=== PATIENT | male | born 1995 | race Caucasian/White ===

== ENCOUNTER 2018-09-13 14:19 | Emergency (ER) | payer BC ==
[2018-09-13 14:35] VITALS: BP 131/61
[2018-09-13] MEDS ORDERED: Ketorolac INJ* 30 MG/ML 1 ML VIAL IM ONE (14:52)
[2018-09-13] MEDS ORDERED: Ketorolac INJ* 30 MG/ML 1 ML VIAL ONE (14:53)
--- NOTE | 2018-09-13 14:55 | UC ---
Hand/Wrist HPI - HPI Summary HPI Summary: Patient is a 23-year-old right-handed male that injured his left thumb about 2: 00 this afternoon playing soccer. He stated he landed in such a way the thumb was forcefully hyperflexed. He is feeling sick to his stomach due to the pain. Denies any other serious injury during this fall - History Of Current Complaint Chief Complaint: UCUpperExtremity Stated Complaint: THUMB INJURY Time Seen by Provider: 09/13/18 14:49 Hx Obtained From: Patient Onset/Duration: Sudden Onset Severity Initially: Severe Severity Currently: Severe Pain Intensity: 8 Pain Scale Used: 0-10 Numeric Character Of Pain: Sharp Aggravating Factor(s): Movement Alleviating Factor(s): Nothing Related History: Dominant Hand Right - Allergies/Home Medications Allergies/Adverse Reactions: Allergies Allergy/AdvReac Type Severity Reaction Status Date / Time No Known Allergies Allergy Verified 09/13/18 14:36 PMH/Surg Hx/FS Hx/Imm Hx Previously Healthy: Yes - Surgical History Surgical History: None - Family History Known Family History: Positive: Hypertension - Social History Alcohol Use: Weekly Substance Use Type: None Smoking Status (MU): Never Smoked Tobacco Review of Systems All Other Systems Reviewed And Are Negative: Yes Musculoskeletal: Positive: Arthralgia Physical Exam Triage Information Reviewed: Yes Appearance: Well-Appearing, No Pain Distress, Well-Nourished Vital Signs: Initial Vital Signs Temp 99.7 F 09/13/18 14:29 Pulse 122 09/13/18 14:29 Resp 16 09/13/18 14:29 BP 131/61 09/13/18 14:29 Pulse Ox 100 09/13/18 14:29 Vital Signs Reviewed: Yes Eyes: Positive: Conjunctiva Clear ENT: Positive: Hearing grossly normal. Negative: Nasal congestion, Nasal drainage, Muffled voice, Hoarse voice Neck: Positive: Supple, Nontender Respiratory: Positive: Lungs clear, Normal breath sounds, No respiratory distress Cardiovascular: Positive: RRR, No Murmur Procedures - Procedure Summary Procedure Summary: thumb spica splint applied by ak - Splinting Left Thumb Hand-Made Type: orthoglass Splint: thumb spica Pre-Proc Neuro Vasc Exam: normal Post-Proc Neuro Vasc Exam: normal Diagnostics - Radiology No standard instances Radiology Interpretation Completed By: Radiologist Summary of Radiographic Findings: Comminuted diaphyseal fracture of the first phalanx with intra-articular extension to the. first metacarpophalangeal joint Hand/Wrist Course/Dx - Course Course Of Treatment: pt and mother informed that I suspect that inaddition to the fracture I suspected serious ligamentous injury. they are aware of need to see specialist. - Differential Dx/Diagnosis Provider Diagnosis: Fracture of thumb, proximal phalanx, left, closed - Physician Notifications Discussed Patient Care With: Naomie Adam - she will see Andres Saturday, surgery anticipated Discharge - Sign-Out/Discharge Documenting (check all that apply): Patient Departure All imaging exams completed and their final reports reviewed: Yes - Discharge Plan Condition: Stable Disposition: HOME Prescriptions: Ibuprofen TAB* [Motrin TAB*] 600 mg PO QID #40 tab Patient Education Materials: Thumb Fracture (ED) Referrals: Naomie Adam MD [Medical Doctor] - 2 Days Additional Instructions: splint elevate ice See Dr. Adam SATURDAY - Billing Disposition and Condition Condition: STABLE Disposition: Home
== END 2018-09-13 16:00 | disposition home or self-care (01) ==
LOC: UCEAST 14:19
DX: S62.512A Displaced fracture of proximal phalanx of left thumb, initial encounter for closed fracture (principal); W18.30XA Fall on same level, unspecified, initial encounter; Y93.66 Activity, soccer; Y92.39 Other specified sports and athletic area as the place of occurrence of the external cause
CPT/HCPCS: 99212; G0463; J1885

== ENCOUNTER 2018-09-16 06:21 | Day surgery (SDC) | payer BC ==
[2018-09-16] MEDS ORDERED: ceFAZolin 2 GM PREMIX in ORs 2 GM/50 ML BAG IVPB ONE (06:32)
[2018-09-16] MEDS ORDERED: Lidocaine 1% INJ* 10 MG/ML 30 ML SDV ONE (07:17)
[2018-09-16] MEDS ORDERED: Bupivacaine 0.5% PF 10 ML VIAL INJ ONE (07:17)
[2018-09-16] MEDS ORDERED: Midazolam* 1 MG/ML 5 ML VIAL (5 MG) ONE (07:24)
[2018-09-16] MEDS ORDERED: fentaNYL* 50 MCG/ML 2 ML VIAL (100 MCG VIAL) ONE (07:24)
[2018-09-16] MEDS ORDERED: Propofol* 10 MG/ML 20 ML BTL ONE (07:35)
[2018-09-16] MEDS ORDERED: Naloxone* 0.4 MG/ML 1 ML VIAL IV PRN (08:10)
[2018-09-16 08:17] VITALS: BP 125/70
--- NOTE | 2018-09-16 20:54 | OP ---
DATE OF OPERATION: 09/16/18 [facility] DATE OF : 89 SURGEON: Dr. Naomie Adam. [employer]: ADAM Cartwright. ANESTHESIA: Local MAC. PRE-OP DIAGNOSIS: Left thumb proximal phalanx fracture. POST-OP DIAGNOSIS: Left thumb proximal phalanx fracture. OPERATIVE PROCEDURE: Closed reduction and pinning, left thumb proximal phalanx fracture. INDICATION FOR PROCEDURE: Andres is a 23-year-old male who fell playing soccer onto his left thumb and suffered a fracture of the proximal phalanx. He also has a flexion deformity at the MP joint. He presents for closed reduction and pinning. ESTIMATED BLOOD LOSS: Zero. TOURNIQUET TIME: Zero. DESCRIPTION OF PROCEDURE: The patient was brought to the operating room, was given a sedation anesthetic, and a digital block with 10 cc of 1% plain lidocaine applied to the left thumb. The skin of his left upper extremity was prepped and draped in the usual sterile fashion. The fracture fragments were aligned by traction manipulation and then secured with two 0.045 inch K-wires. There was still a slight flexion deformity at the MP joint, presumably caused by a MP joint capsule injury. His EPL tendon was intact on exam. So, the MP joint was brought into full extension and then a single 0.045 inch K-wire was driven across the MP joint through the metacarpal head and into the proximal phalanx. The position of the hardware and fracture fragments was checked on the C-arm in the AP and lateral views and found to be satisfactory. The pins were bent and cut and dressed with Xeroform, 4x4, Webril, and a thumb spica splint. The patient tolerated the procedure well and was brought to the recovery room in good condition. [id number]/CPS #: [id number] [facility]
== END 2018-09-16 08:53 | disposition home or self-care (01) ==
LOC: OREAST 06:21
PROVIDERS: ATTEND Orthopaedic Surgery
PROC: 0PSS34Z Reposition Left Thumb Phalanx with Internal Fixation Device, Percutaneous Approach (ICD-10-PCS; principal; 2018-09-16 07:30)
DX: S62.512A Displaced fracture of proximal phalanx of left thumb, initial encounter for closed fracture (principal); W01.198A Fall on same level from slipping, tripping and stumbling with subsequent striking against other object, initial encounter; Y93.66 Activity, soccer; Y92.89 Other specified places as the place of occurrence of the external cause
CPT/HCPCS: 76000; C1776; J0690; J2250; J2704; J3010